=== PATIENT | female | born 1955 | race Caucasian/White ===

== ENCOUNTER 2023-04-05 19:03 | Emergency (ER) | payer OTHER, SELFPAY ==
[2023-04-05 19:10] VITALS: BP 131/74; PULSE 79; RESP 20; TEMP 37.1; O2SAT 98; BMI 29.2
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
[2023-04-05] MEDS: HYDROCODONE/ACET 5/325 PREPACK 1 BOTTLE MISC (22:05)
[2023-04-05 22:09] VITALS: BP 111/68; PULSE 69; RESP 16; O2SAT 98
--- NOTE | 2023-04-06 12:15 | PC.NURSE ---
Pt called stating that [facility] didn't have [place] and she needed to have prescription transferred. I called [facility] pharmacy and they have script ready. I called pt back and told her it was ready.
== END 2023-04-05 22:09 | disposition home or self-care (01) ==
PROVIDERS: Emergency Provider Emergency Medicine
DX: S70.02XA Contusion of left hip, initial encounter (principal); M25.512 Pain in left shoulder; V18.0XXA Pedal cycle driver injured in noncollision transport accident in nontraffic accident, initial encounter
CPT/HCPCS: 73030; 73502; 99282; 99283